=== PATIENT | male | born 1945 | race Asian ===

== ENCOUNTER 2017-05-23 11:08 | Emergency (ER) | payer OTHER ==
[~2017-05-23] VITALS: Ht 165.1 cm; Wt 68.0 kg
[2017-05-23] MEDS ORDERED: BLOOD PRESSURE (11:34)
[2017-05-23 12:01] LABS: ABSOLUTE NEUTROPHILS 4.3 thou/uL (1.4-8.2); BASOPHILS 1.1 % (0.0-2.0); EOSINOPHILS 3.3 % (0.0-3.0); HEMATOCRIT 42.2 % (42.0-52.0); HEMOGLOBIN 14.5 gm/dL (14.0-18.0); LYMPHOCYTES 18.2 % (24.0-44.0); MANUAL DIFF NO; MCH 31.5 pg (26.0-34.0); MCHC 34.4 g/dL (28.0-37.0); MCV 91.6 fL (80.0-100.0); MONOCYTES 7.2 % (1.0-8.0); PLATELET COUNT 212 thou/uL (150-400); POLYS 70.2 % (36.0-66.0); RBC 4.61 mil/uL (4.50-6.00); RDW 13.9 % (10.5-14.5); WBC 6.2 thou/uL (4.0-11.0)
[2017-05-23 12:09] LABS: CALCIUM 9.1 mg/dL (8.5-10.1); CREATININE 1.1 mg/dL (0.7-1.3); POTASSIUM 3.6 mmol/L (3.5-5.1)
[2017-05-23 14:08] VITALS: BP 113/64
== END 2017-05-23 14:10 | disposition home or self-care (01) ==
LOC: ER 11:08
PROVIDERS: Emergency Medicine
DX: E86.0 Dehydration (principal); G47.9 Sleep disorder, unspecified; G47.20 Circadian rhythm sleep disorder, unspecified type; G47.25 Circadian rhythm sleep disorder, jet lag type; I10 Essential (primary) hypertension